=== PATIENT | female | born 1995 | race Caucasian/White ===

== ENCOUNTER 2019-12-26 12:11 | Emergency (ER) | payer BC, OTHER ==
[~2019-12-26] VITALS: Ht 165.1 cm; Wt 88.5 kg
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
[2019-12-26] MEDS ORDERED: MECLIZINE HCL 12.5 MG TAB PO ONE (13:00)
[2019-12-26] MEDS ORDERED: CLONIDINE HCL 0.1 MG TAB PO ONE (13:00)
[2019-12-26] MEDS ORDERED: CLONIDINE HCL 0.2 MG TAB PO ONE (13:00)
[2019-12-26] MEDS ORDERED: CLONIDINE HCL 0.1 MG TAB ONE (13:24)
[2019-12-26] MEDS ORDERED: MECLIZINE HCL 12.5 MG TAB ONE (13:24)
--- NOTE | 2019-12-26 13:37 | Diagnostic Imaging Report ---
History: Dizziness, high blood pressure for 2 days Comparison studies: None Technique: Axial images were obtained from the skull base to the vertex. Coronal and sagittal reconstructions obtained from the axial data. Dose modulation, iterative reconstruction, and/or weight based adjustment of the mA/kV was utilized to reduce the radiation dose to as low as reasonably achievable. Findings: Scalp/skull: No abnormalities. No fractures, blastic or lytic lesions. Extra-axial spaces: No masses. No fluid collections. Brain sulci: Appropriate for age. Ventricles: Normal in size and configuration. No hydrocephalus. Parenchyma: No abnormal densities. No masses, hemorrhage, acute or chronic cortical vascular insults. Sellar/suprasellar region: No abnormalities Craniocervical junction: Patent foramen magnum. No Chiari one malformation. IMPRESSION: No abnormalities . Signed by: DR Yazan Palma M.D. on 12/26/2019 1:33 PM
[2019-12-26 14:23] VITALS: BP 160/94
== END 2019-12-26 14:40 | disposition home or self-care (01) ==
LOC: FSED 12:11
DX: H81.392 Other peripheral vertigo, left ear (principal); I10 Essential (primary) hypertension
CPT/HCPCS: 70450; 80053; 81003; 81025; 85025; 99283; J8597